=== PATIENT | male | born 1955 | race Caucasian/White ===

== ENCOUNTER 2018-04-09 02:25 | Emergency (ER) | payer BC, OTHER ==
[~2018-04-09] VITALS: Ht 177.8 cm; Wt 63.5 kg
[~2018-04-09 02:25] MED LIST: ALEVE220 MG PO; AMBIEN 5 MG TABL5 M1 PO; ANTIBIOTIC; CELEBREX 200 M200 MG PO; DOXYCYCLINE 10100 MG PO; HYDROCODON-ACE1 EAC7 PO; MELATONIN3 MG PO; MULTI VITAMIN1 EACH PO
[2018-04-09] MEDS ORDERED: TRAMADOL 50 MG50 MG PO (02:35)
[2018-04-09] MEDS ORDERED: ERY-TAB250 MG (02:36)
[2018-04-09 02:45] LABS: ABSOLUTE NEUTROPHILS 7.9 thou/uL (1.4-8.2); BASOPHILS 1.1 % (0.0-2.0); EOSINOPHILS 5.3 % (0.0-3.0); HEMATOCRIT 45.2 % (42.0-52.0); HEMOGLOBIN 15.1 gm/dL (14.0-18.0); LYMPHOCYTES 27.6 % (24.0-44.0); MCH 28.6 pg (26.0-34.0); MCHC 33.3 g/dL (28.0-37.0); MCV 85.9 fL (80.0-100.0); MONOCYTES 6.9 % (1.0-8.0); PLATELET COUNT 291 thou/uL (150-400); POLYS 59.1 % (36.0-66.0); RBC 5.26 mil/uL (4.50-6.00); RDW 15.3 % (10.5-14.5); WBC 13.4 thou/uL (4.0-11.0)
[2018-04-09 02:51] LABS: CALCIUM 9.9 mg/dL (8.5-10.1); CREATININE 0.9 mg/dL (0.7-1.3); POTASSIUM 3.5 mmol/L (3.5-5.1)
[2018-04-09 02:57] LABS: ALBUMIN 4.2 g/dL (3.4-5.0); TOTAL BILIRUBIN 0.9 mg/dL (<0.1-1.0); TOTAL PROTEIN 8.7 g/dL (6.4-8.2)
[2018-04-09 05:00] LABS: URINE BILIRUBIN NEGATIVE (Negative); URINE BLOOD TRACE (Negative); URINE CLARITY CLEAR; URINE COLOR YELLOW; URINE GLUCOSE-RANDOM* NEGATIVE (Negative); URINE KETONES 1+ (Negative); URINE LEUKOCYTES NEGATIVE (Negative); URINE NITRITE NEGATIVE (Negative); URINE PROTEIN (DIPSTICK) NEGATIVE (Negative); URINE UROBILINOGEN 0.2 E.U./dl (0.2-1.0)
[2018-04-09] MEDS ORDERED: BENTYL 20 MG TA20 M1 PO (05:18)
[2018-04-09] MEDS ORDERED: ZOFRAN ODT4 MG PO (05:19)
[2018-04-09 05:25] VITALS: BP 137/62
== END 2018-04-09 05:40 | disposition home or self-care (01) ==
LOC: ER 02:25
PROVIDERS: Emergency Medicine
DX: R10.11 Right upper quadrant pain (principal); R11.2 Nausea with vomiting, unspecified; Z88.0 Allergy status to penicillin

== ENCOUNTER 2018-06-25 11:23 | Emergency (ER) | payer BC, OTHER ==
[~2018-06-25] VITALS: Ht 175.3 cm; Wt 59.9 kg
[~2018-06-25 11:23] MED LIST changes: +BENTYL 20 MG TA20 M1 PO; +ERY-TAB250 MG; +TRAMADOL 50 MG50 MG PO; +ZOFRAN ODT4 MG PO
[2018-06-25 12:36] LABS: ABSOLUTE NEUTROPHILS 6.6 thou/uL (1.4-8.2); BASOPHILS 0.5 % (0.0-2.0); EOSINOPHILS 1.2 % (0.0-3.0); HEMATOCRIT 41.3 % (42.0-52.0); LYMPHOCYTES 23.3 % (24.0-44.0); MCH 29.3 pg (26.0-34.0); MCHC 33.9 g/dL (28.0-37.0); MCV 86.3 fL (80.0-100.0); MONOCYTES 5.9 % (1.0-8.0); PLATELET COUNT 259 thou/uL (150-400); POLYS 69.1 % (36.0-66.0); RBC 4.79 mil/uL (4.50-6.00); RDW 14.7 % (10.5-14.5); WBC 9.5 thou/uL (4.0-11.0)
[2018-06-25 12:40] LABS: CALCIUM 9.9 mg/dL (8.5-10.1); CREATININE 0.9 mg/dL (0.7-1.3); POTASSIUM 4.1 mmol/L (3.5-5.1)
[2018-06-25 12:46] LABS: ALBUMIN 3.9 g/dL (3.4-5.0); DIRECT BILIRUBIN 0.1 mg/dL (<0.1-0.3); TOTAL BILIRUBIN 0.6 mg/dL (<0.1-1.0); TOTAL PROTEIN 8.4 g/dL (6.4-8.2)
[2018-06-25 14:37] LABS: URINE BILIRUBIN NEGATIVE (Negative); URINE BLOOD NEGATIVE (Negative); URINE CLARITY CLEAR; URINE COLOR YELLOW; URINE GLUCOSE-RANDOM* NEGATIVE (Negative); URINE KETONES TRACE (Negative); URINE LEUKOCYTES NEGATIVE (Negative); URINE NITRITE NEGATIVE (Negative); URINE PROTEIN (DIPSTICK) NEGATIVE (Negative); URINE UROBILINOGEN 0.2 E.U./dl (0.2-1.0)
[2018-06-25] MEDS ORDERED: CARAFATE 1 GM TA1 G1 PO (14:39)
[2018-06-25 15:25] VITALS: BP 156/80
--- NOTE | 2018-06-26 07:45 | EKG ---
[address] [address] ELECTROCARDIOGRAM REPORT Name: MANUELA LAZO Room #: DEP [facility]#: [id number] ������������������ Admission: 06/25/18 ������������������ Attend Phys: Discharge: 06/25/18 ������������������ Date of : 51 Report #: [id number] ����������������������������������������������������������������� [id number] THIS REPORT FOR: //name// [facility] ED Test Date: 2018-06-25 Test Time: 12:11:43 Pat Name: MANUELA LAZO Department: Room: Gender: M System Archive Analyst: DIEGO : 1955 Requested By: Ramón Vargas Order Number: [id number] MD: Beto Greenberg Measurements Intervals [place] Rate: 45 P: 69 OR: 163 QRS: 82 QRSD: 97 T: 35 QT: 455 QTc: 394 Interpretive Statements Sinus bradycardia Anterior infarct, old No previous ECG available for comparison Electronically Signed On 06-26-2018 7:45:27 DRAWING INSTRUCTOR by Beto Greenberg [email or web address] ��������������������������������������������� <ELECTRONICALLY SIGNED> ���������������������������������������� By: Beto Greenberg MD, [facility] ��������������������������������������������� 06/26/18 0745 1211 1211 Beto Greenberg MD, FACC /EPI
== END 2018-06-25 15:29 | disposition home or self-care (01) ==
LOC: ER 11:23
PROVIDERS: Nurse Practitioner
DX: K29.70 Gastritis, unspecified, without bleeding (principal); F17.210 Nicotine dependence, cigarettes, uncomplicated; Z88.0 Allergy status to penicillin

== ENCOUNTER → 2020-12-25 | Outpatient (CLI) | payer BC, OTHER ==
[~2020-12-25] MED LIST changes: +CARAFATE 1 GM TA1 G1 PO
== END ==
LOC: ULTRA 12:12
PROVIDERS: ATTEND Family Medicine
DX: I70.293 Other atherosclerosis of native arteries of extremities, bilateral legs (principal); Z87.891 Personal history of nicotine dependence